=== PATIENT | female | born 1930 | race African-American/Black ===

== ENCOUNTER 2016-11-07 10:36 | Emergency (ER) | payer MEDICARE, OTHER ==
[~2016-11-07] VITALS: Ht 154.9 cm; Wt 118.0 kg
[~2016-11-07 10:36] MED LIST: ATOR20TA42 PO; CLOP75 PO; ECASA PO; ERGO50000 PO; FAMO20 PO; INDO50CA PO; METH5TAB4 PO; METO50TA PO; PRED20 PO; PROT40TA PO; SPIR50TA21 PO; TAB-TAB PO
[2016-11-07 10:37] VITALS: BP 142/76; PULSE 112; RESP 20; TEMP 98; O2SAT 97
[2016-11-07 10:54] VITALS: BP 132/72; PULSE 84; RESP 16; O2SAT 97
[2016-11-07] MEDS ORDERED: METO50TA PO (11:07)
[2016-11-07] MEDS ORDERED: PROT40TA PO (11:07)
[2016-11-07] MEDS ORDERED: BACL20TA PO (11:07)
[2016-11-07] MEDS ORDERED: ATOR20TA15 PO (11:07)
[2016-11-07] MEDS ORDERED: ALDA50TA2 PO (11:07)
[2016-11-07] MEDS ORDERED: ASPI325T PO (11:07)
--- NOTE | 2016-11-07 11:08 | PD ---
HPI Chief Complaint: Pain: Acute or Chronic Time Seen by Provider: 11:07 Travel History International Travel<30 days: No Contact w/Intl Traveler<30days: No Traveled to known affect area: No History of Present Illness HPI 86-year-old female presents to the emergency Department with complaint of general body aches since yesterday. Complaining of neck pain, left knee pain, back pain. Says she has history of arthritis and osteoporosis. Left knee pain is significant and she says her left knee has more swollen than her right. Reports decreased range of motion and strength secondary to pain. Denies injury. Denies chest pain, shortness of breath, abdominal pain, nausea, vomiting, diarrhea. Denies fever. Denies change in urine or stool. Denies nasal congestion, sore throat, cough, ear pain. Says the pain is "just my bones." States she wears depends but denies urinary symptoms. Has taken Aleve with no relief of symptoms. Allergies to tramadol and -prils. History of arthritis, osteoporosis, hypertension. That she doesn't have COPD but occasionally uses home oxygen. Primary care provider is Meghna Honeycutt. Symptoms are mild in severity. No other medical complaints. No other modifying factors or associated signs and symptoms. PFSH Past Medical History Arthritis: Yes Cancer: No Cardiovascular Problems: Yes (HTN) Cerebrovascular Accident: Yes (TIA IN 2014) Diabetes: No Diminished Hearing: No Endocrine: No Gastrointestinal Disorders: Yes (GASTRITIS) Gout: Yes Genitourinary: No Hypertension: Yes Immune Disorder: No Musculoskeletal: Yes Neurologic: No Respiratory: No Influenza Vaccination: Yes Menopausal: Yes Past Surgical History Gynecologic Surgery: Yes (HYSTERECTOMY) Hysterectomy: Yes Social History Alcohol Use: No Tobacco Use: No (stopped 06/2010-03/31 PPD X15 YR) Substance Use: No Allergies-Medications (Allergen,Severity, Reaction): Coded Allergies: benazepril (Unverified Allergy, Severe, Swelling, 11/09/16) captopril (Unverified Allergy, Severe, Swelling, 11/09/16) enalaprilat (Unverified Allergy, Severe, Swelling, 11/09/16) fosinopril (Unverified Allergy, Severe, Swelling, 11/09/16) lisinopril (Unverified Allergy, Severe, Swelling, 11/09/16) quinapril (Unverified Allergy, Severe, Swelling, 11/09/16) tramadol (Unverified Allergy, Intermediate, Hives, 11/09/16) Reported Meds & Prescriptions Reported Meds & Active Scripts Active Lortab (Hydrocodone-Acetaminophen) 5-325 Mg Tab 1 Tab PO Q6H PRN Macrobid (Nitrofurantoin Monoh/Nitrofur Macro) 100 Mg Cap 100 Mg PO BID 5 Days Reported Aldactone (Spironolactone) 50 Mg Tab 50 Mg PO DAILY Protonix (Pantoprazole Sodium) 40 Mg Tab 40 Mg PO DAILY Metoprolol Tartrate 50 Mg Tab 50 Mg PO BID Baclofen 20 Mg Tab 20 Mg PO DAILY Atorvastatin (Atorvastatin Calcium) 20 Mg Tab 20 Mg PO DAILY Aspirin 325 Mg Tab 325 Mg PO DAILY Review of Systems Except as stated in HPI: all other systems reviewed are Neg Physical Exam Narrative GENERAL: Well-nourished, well-developed elderly, -[place] female patient , in no acute distress; afebrile, nontoxic-appearing SKIN: Warm and dry. No rash. HEAD: Atraumatic. Normocephalic. EYES: Pupils equal and round. No scleral icterus. No injection or drainage. ENT: Mucosa pink and moist. No erythema or exudates. No uvular edema. No uvular , palatal, or tonsillar deviation. Airway patent. EARS: Bilateral pinnae and external canals appear within normal limits. Bilateral tympanic membranes without erythema, dullness or perforation. NECK: Moving freely. No midline tenderness on the patient of the cervical spine. Active rotation greater than 45 to the left and right. Trachea midline. No lymphadenopathy. CARDIOVASCULAR: Regular rate and rhythm. No murmur appreciated. RESPIRATORY: No accessory muscle use. Clear to auscultation. Breath sounds equal bilaterally. No retractions or tachypnea. GASTROINTESTINAL: Abdomen soft, non-tender, nondistended. Hepatic and splenic margins not palpable. Bowel sounds are active 4 quadrants. MUSCULOSKELETAL: Left knee with decreased range of motion; mild edema and without erythema or ecchymosis; tenderness on palpation to medial, lateral, patellar, and posterior aspect; no obvious deformity. No obvious deformities. No clubbing. No cyanosis. No edema. BACK: No CVA tenderness. NEUROLOGICAL: Awake and alert. Oriented 3. No obvious cranial nerve deficits. Motor grossly within normal limits. Normal speech. Moves all extremities. 5/5 strength to all extremities. PSYCHIATRIC: Appropriate mood and affect; insight and judgment normal. Data Data Last Documented VS Vital Signs Date Time Temp Pulse Resp B/P Pulse Ox O2 Delivery O2 Flow Rate FiO2 11/07/16 10:54 84 16 132/72 97 Room Air 11/07/16 10:37 98.0 Orders Basic Metabolic Panel (Bmp) (11/07/16 11:04) Complete Blood Count With Diff (11/07/16 11:04) Urinalysis - C+S If Indicated (11/07/16 11:04) Sodium Chloride 0.9% Flush (Ns Flush) (11/07/16 11:15) Chest, Single Ap (11/07/16 11:04) Ketorolac Inj (Toradol Inj) (11/07/16 11:15) Knee, Complete (4vws) (11/07/16 11:04) Influenzae A/B Antigen (11/07/16 11:12) Sodium Chlorid 0.9% 500 Ml Inj (Ns 500 M (11/07/16 13:15) Acetamin-Hydrocod 325-5 Mg ([place] 5-325 (11/07/16 13:45) Labs Laboratory Tests Test 11/07/16 11/07/16 11:35 12:15 White Blood Count 8.3 TH/MM3 Red Blood Count 4.19 MIL/MM3 Hemoglobin 11.6 GM/DL Hematocrit 36.2 % Mean Corpuscular Volume 86.5 FL Mean Corpuscular Hemoglobin 27.8 PG Mean Corpuscular Hemoglobin 32.1 % Concent Red Cell Distribution Width 15.6 % Platelet Count 209 TH/MM3 Mean Platelet Volume 7.6 FL Neutrophils (%) (Auto) 76.7 % Lymphocytes (%) (Auto) 13.1 % Monocytes (%) (Auto) 7.4 % Eosinophils (%) (Auto) 1.8 % Basophils (%) (Auto) 1.0 % Neutrophils # (Auto) 6.4 TH/MM3 Lymphocytes # (Auto) 1.1 TH/MM3 Monocytes # (Auto) 0.6 TH/MM3 Eosinophils # (Auto) 0.1 TH/MM3 Basophils # (Auto) 0.1 TH/MM3 CBC Comment DIFF FINAL Differential Comment Sodium Level 141 MEQ/L Potassium Level 4.2 MEQ/L Chloride Level 106 MEQ/L Carbon Dioxide Level 25.6 MEQ/L Anion Gap 9 MEQ/L Blood Urea Nitrogen 21 MG/DL Creatinine 1.44 MG/DL Estimat Glomerular Filtration 42 ML/MIN Rate Random Glucose 95 MG/DL Calcium Level 9.3 MG/DL Urine Color YELLOW Urine Turbidity HAZY Urine pH 5.5 Urine Specific [place] 1.023 Urine Protein TRACE mg/dL Urine Glucose (UA) NEG mg/dL Urine Ketones NEG mg/dL Urine Occult Blood MOD Urine Nitrite NEG Urine Bilirubin NEG Urine Urobilinogen LESS THAN 2.0 MG/DL Urine Leukocyte Esterase MOD Urine RBC 142 /hpf Urine WBC 6 /hpf Urine Squamous Epithelial 10 /hpf Cells Urine Transitional Epithelial <1 /hpf Cells Urine Bacteria RARE /hpf Urine Hyaline Casts 5 /lpf Urine Mucus FEW /lpf Microscopic Urinalysis Comment CULT NOT INDICATED MDM Medical Decision Making Medical Screen Exam Complete: Yes Emergency Medical Condition: Yes Medical Record Reviewed: Yes Differential Diagnosis Arthritis, left knee pain, influenza, generalized body aches, osteoporosis Narrative Course 86-year-old female with general body aches since yesterday. I spoke with Dr. Herndon, my attending physician, and he agrees with my plan of care. CBC, BMP , urinalysis, chest x-ray, left knee x-ray, Toradol, and influenza ordered. 1301: CBC unremarkable. BUN 21. Creatinine 1.44. Chest x-ray with no acute findings. Left knee x-ray concludes: Last 24 hours Impressions Knee X-Ray 11/07/16 1104 Signed Impressions: Service Date/Time: Monday, November 07, 2016 11:15 - CONCLUSION: 1. 3 compartment osteoarthritic change greatest in the medial compartment. 2. Large calcified joint body in the suprapatellar bursa. 3. Osteopenia. Hayder Ingram MD Chest X-Ray 11/07/16 1104 Signed Impressions: Service Date/Time: Monday, November 07, 2016 11:14 - CONCLUSION: No acute disease. Hayder Ingram MD Analysis essentially infection. Macrobid prescribed. Dr. Herndon prescribed Lortab for pain. Patient has a walker for support. Instructed patient to follow up with orthopedics. Instructed patient to follow up with primary care provider. Patient verbalizes understanding and agreement with treatment plan. Patient is medically cleared and stable for discharge. Discussed reasons to return to the emergency department. Patient agrees with treatment plan. The patients vital signs are stable and the patient is stable for outpatient follow- up and treatment. Patient discharged home, stable and in no acute distress. Diagnosis Primary Impression: Left knee pain Qualified Code: M25.562 - Left knee pain, unspecified chronicity Additional Impressions: Generalized pain Cystitis Referrals: Primary Care Physician Patient Instructions: General Instructions, Knee Pain (ED), Urinary Tract Infection in Women (ED) Additional Instructions: Tylenol instructed and as needed for pain and inflammation Walker for support Follow-up with primary care provider Return to emergency department immediately for worsening symptoms Med/Other Pt SpecificInfo: Prescription(s) given Scripts Hydrocodone-Acetaminophen (Lortab)5-325 Mg Tab1 Tab PO Q6H PRN (PAIN) #10 TAB Ref 0 Prov:Atul Herndon MD 11/07/16 Nitrofurantoin Monohydrate Macrocrystals (Macrobid)100 Mg [id number] Mg PO BID 5 Days Ref 0 Prov:Evon Coffey 11/07/16 Disposition: 01 DISCHARGE HOME Condition: Stable Evon Coffey Nov 07, 2016 11:08
[2016-11-07] MEDS ORDERED: SODIUM CHLORIDE 0.9% FLUSH 10 ML FLUSH IV FLUSH PRN (11:15)
[2016-11-07] MEDS ORDERED: KETOROLAC TROMETHAMINE 30 MG/ML (IVP) VIAL IV PUSH ONE (11:15)
--- NOTE | 2016-11-07 11:36 | RADRPT ---
EXAM DATE/TIME: 11/07/2016 11:14 [facility] COMPARISON: CHEST PA & LAT, June 24, 2014, 11:47. CHEST SINGLE AP, March 30, 2014, 18:23. INDICATIONS : Short of breath. MEDICAL HISTORY : Gout. SURGICAL HISTORY : None. ENCOUNTER: Initial ACUITY: 2 days PAIN SCORE: 0/10 LOCATION: Bilateral chest FINDINGS: A single view of the chest demonstrates the lungs to be symmetrically aerated without evidence of mas s, infiltrate or effusion. The cardiomediastinal contours are unremarkable. Osseous structures are intact. A retrocardiac hiatal hernia is again noted. There are mild atherosclerotic changes in the ao rta. Degenerative changes are noted in the left glenohumeral joint and there is evidence of chronic r otator cuff degeneration on the right. CONCLUSION: No acute disease. Hayder Ingram MD on November 07, 2016 at 11:34 Board Certified Radiologist. This report was verified electronically.
--- NOTE | 2016-11-07 11:38 | RADRPT ---
EXAM DATE/TIME: 11/07/2016 11:15 [facility] COMPARISON: No previous studies available for comparison. INDICATIONS : Left knee pain. No known injury. MEDICAL HISTORY : Gout. SURGICAL HISTORY : None. ENCOUNTER: Initial ACUITY: 2 days PAIN SCORE: 10/10 LOCATION: Left knee. FINDINGS: A standard 4 view examination of the left knee was obtained and demonstrates joint space narrowing, s clerosis and spurring in the medial compartment. Milder degenerative changes are noted in the patello femoral joint with sclerosis and spurring. There is chondrocalcinosis in the lateral compartment. The re is a large partially calcified joint body suprapatellar bursa measuring up to 0.6 x 2.2 cm. There is no acute fracture or malalignment. Vascular calcifications are present and there is diffuse osteop enia. CONCLUSION: 1. 3 compartment osteoarthritic change greatest in the medial compartment. 2. Large calcified joint body in the suprapatellar bursa. 3. Osteopenia. Hayder Ingram MD on November 07, 2016 at 11:35 Board Certified Radiologist. This report was verified electronically.
[2016-11-07 11:50] LABS: AUTOMATED NEUTROPHIL # 6.4 TH/MM3 (1.8-7.7); BASOPHIL # 0.1 TH/MM3 (0-0.2); EOSINOPHIL # 0.1 TH/MM3 (0-0.4); EOSINOPHIL % 1.8 % (0.0-4.0); HEMATOCRIT 36.2 % (35.0-46.0); HEMO FLAGS DIFF FINAL; LYMPH % 13.1 % (9.0-44.0); LYMPHOCYTE # 1.1 TH/MM3 (1.0-4.8); MEAN CELL VOLUME 86.5 FL (80.0-100.0); MEAN CORPUSCULAR HEMOGLOBIN 27.8 PG (27.0-34.0); MEAN CORPUSCULAR HGB CONC 32.1 % (32.0-36.0); MONO % 7.4 % (0.0-8.0); NEUT % 76.7 % (16.0-70.0); PLATELET COUNT 209 TH/MM3 (150-450); RED BLOOD COUNT 4.19 MIL/MM3 (4.00-5.30); RED CELL DISTRIBUTION WIDTH 15.6 % (11.6-17.2); WHITE BLOOD COUNT 8.3 TH/MM3 (4.0-11.0)
[2016-11-07 12:05] LABS: BICARBONATE 25.6 MEQ/L (21.0-32.0); POTASSIUM 4.2 MEQ/L (3.5-5.1)
[2016-11-07 12:50] LABS: BACTERIA, URINE RARE /hpf; BLOOD, URINE MOD (NEG); GLUCOSE,URINE NEG (NEG); HYALINE CAST, URINE 5 /lpf (RARE); KETONE, URINE NEG (NEG); MUCUS URINE FEW /lpf (OCC); NITRITE,URINE NEG (NEG); PH, URINE 5.5 (5.0-8.5); SQUAMOUS EPITHELIAL CELL URINE 10 /hpf (0-5); TRANSITIONAL EPI CELLS, URINE <1 /hpf; URINE COLOR YELLOW (YELLW/STRAW)
[2016-11-07 12:51] LABS: COMMENT (UR) CULT NOT INDICATED; CULTURE IF INDICATED CULT NOT INDICATED
[2016-11-07] MEDS ORDERED: SODIUM CHLORID 0.9% 500 ML INJ 500 ML IV ONE (13:15)
[2016-11-07] MEDS ORDERED: MACR100C2 PO (13:26)
[2016-11-07] MEDS ORDERED: HYDR-3533 PO (13:30)
[2016-11-07] MEDS ORDERED: ACETAMINOPHEN/HYDROcodone 325 MG/5 MG TAB PO ONE (13:45)
== END 2016-11-07 14:22 | disposition home or self-care (01) ==
LOC: NEPD 10:36
DX: M25.562 Pain in left knee (principal); N30.90 Cystitis, unspecified without hematuria; M54.2 Cervicalgia; I10 Essential (primary) hypertension; Z87.891 Personal history of nicotine dependence
CPT/HCPCS: 71010; 73564; 80048; 81001; 85025; 87804; 96361; 96374; 99284; J1885; J7040

== ENCOUNTER 2017-09-07 13:39 | Emergency (ER) | payer OTHER ==
[~2017-09-07] VITALS: Ht 154.9 cm; Wt 90.0 kg
[~2017-09-07 13:39] MED LIST changes: +ALDA50TA2 PO; +ASPI-183 PO; +ATOR20TA15 PO; -ATOR20TA42 PO; +BACL20TA PO; -CLOP75 PO; -ECASA PO; -ERGO50000 PO; -FAMO20 PO; +HYDR-3533 PO; -INDO50CA PO; +MACR100C2 PO; -METH5TAB4 PO; -PRED20 PO; -SPIR50TA21 PO; -TAB-TAB PO
[2017-09-07 13:45] VITALS: BP 143/65; PULSE 77; RESP 16; TEMP 98.1; O2SAT 96
[2017-09-07] MEDS ORDERED: ROBA500T PO (14:21)
--- NOTE | 2017-09-07 14:21 | PD ---
HPI Chief Complaint: Back/ Neck Pain or Injury Time Seen by Provider: 13:55 Travel History International Travel<30 days: No Contact w/Intl Traveler<30days: No Traveled to known affect area: No History of Present Illness HPI 87-year-old female presents to emergency department with complaint of right- sided low back pain that radiates down her right leg that she has been dealing with for many years. She says over the past 1 month her pain has worsened. Denies new or recent injury. She has followed up with her primary care provider and has had x-rays of her lumbar spine, hip, and has been referred to pain management. She has an appointment with pain management on September 16. Denies encopresis, incontinence, saddle anesthesias. Denies cancer. Denies fever, vomiting, abdominal pain, dysuria, change in stool. Has been taking Tylenol for pain with some relief. Rates pain 10/10 in the mornings when she first wakes up. Her pain subsided throughout the day with movement. Pain is worse in the mornings. Better throughout the day. Primary care provider is [employer]. Allergies as listed on the chart. 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 Has no other medical complaints. No other modifying factors or associated signs and symptoms. PFSH Past Medical History Arthritis: Yes Cancer: No Cardiovascular Problems: Yes (HTN) Cerebrovascular Accident: Yes (TIA IN 2014) Diabetes: No Diminished Hearing: No Endocrine: No Gastrointestinal Disorders: Yes (GASTRITIS) Gout: Yes Genitourinary: No Hypertension: Yes Immune Disorder: No Musculoskeletal: Yes Neurologic: No Respiratory: No ?: Not Menopausal: Yes Past Surgical History Gynecologic Surgery: Yes (HYSTERECTOMY) Hysterectomy: Yes Social History Alcohol Use: No Tobacco Use: No (stopped 06/2010-03/31 PPD X15 YR) Substance Use: No Allergies-Medications (Allergen,Severity, Reaction): Coded Allergies: benazepril (Unverified Allergy, Severe, Swelling, 09/07/17) captopril (Unverified Allergy, Severe, Swelling, 09/07/17) enalaprilat (Unverified Allergy, Severe, Swelling, 09/07/17) fosinopril (Unverified Allergy, Severe, Swelling, 09/07/17) lisinopril (Unverified Allergy, Severe, Swelling, 09/07/17) quinapril (Unverified Allergy, Severe, Swelling, 09/07/17) tramadol (Unverified Allergy, Intermediate, Hives, 09/07/17) acetaminophen (Verified Allergy, Unknown, 09/07/17) oxycodone (Verified Allergy, Unknown, 09/07/17) Reported Meds & Prescriptions Reported Meds & Active Scripts Active Robaxin (Methocarbamol) 500 Mg Tab 500 Mg PO QID PRN Macrobid (Nitrofurantoin Monoh/Nitrofur Macro) 100 Mg Cap 100 Mg PO BID 5 Days Reported Aldactone (Spironolactone) 50 Mg Tab 50 Mg PO DAILY Protonix (Pantoprazole Sodium) 40 Mg Tab 40 Mg PO DAILY Metoprolol Tartrate 50 Mg Tab 50 Mg PO BID Baclofen 20 Mg Tab 20 Mg PO DAILY Atorvastatin (Atorvastatin Calcium) 20 Mg Tab 20 Mg PO DAILY Aspirin 325 Mg Tab 325 Mg PO DAILY Review of Systems Except as stated in HPI: all other systems reviewed are Neg Physical Exam Narrative GENERAL: Well-nourished, well-developed elderly, black female patient, in no acute distress; afebrile, nontoxic-appearing SKIN: Warm and dry. HEAD: Atraumatic. Normocephalic. EYES: Pupils equal and round. No scleral icterus. No injection or drainage. ENT: Mucosa pink and moist. Airway patent. NECK: Trachea midline. CARDIOVASCULAR: Regular rate. RESPIRATORY: No accessory muscle use. GASTROINTESTINAL: Abdomen soft, non-tender, nondistended. Positive bowel sounds. No hepato-splenomegaly, or palpable masses. No guarding. MUSCULOSKELETAL: Bilateral lower extremities supple and non-tense with 2+ pedal pulses and sensory intact; with full range of motion and 5/5 strength. 2 + DTRs bilaterally. Active dorsiflexion and extension of bilateral feet. By straight leg raise is negative for low back pain. Ambulatory in room with normal gait and with assistance with her cane. Sitting up in bed at 90. No obvious deformities. No clubbing. No cyanosis. No edema. BACK: No midline point tenderness on palpation of the lumbar spine. Tenderness on palpation of right lumbar iliosacral area. No obvious deformities. NEUROLOGICAL: Awake and alert. Oriented 3. No obvious cranial nerve deficits. Motor grossly within normal limits. Normal speech. Moves all extremities. 5/5 strength to all extremities. Sensory intact. PSYCHIATRIC: Appropriate mood and affect; insight and judgment normal. Data Data Last Documented VS Vital Signs Date Time Temp Pulse Resp B/P (MAP) Pulse Ox O2 Delivery O2 Flow Rate FiO2 09/07/17 13:45 98.1 77 16 143/65 (91) 96 Orders Orders Orphenadrine Inj (Norflex Inj) (09/07/17 14:30) Ed Discharge Order (09/07/17 14:17) MDM Medical Decision Making Medical Screen Exam Complete: Yes Emergency Medical Condition: Yes Medical Record Reviewed: Yes Differential Diagnosis Chronic low back pain, acute exacerbation of chronic low back pain, sciatica Narrative Course 87-year-old female with right-sided low back pain with sciatica. She states she has had imaging of her lumbar spine and right hip from her primary care provider. She has been referred to pain management and has a appointment on September 16. She was hoping she could get some pain relief by coming into the ER. She has no midline tenderness on palpation of the lumbar spine. No current cancer. Denies fever, vomiting. She is ambulatory in the room with a normal gait with assistance with her cane. Her neuro exam is unremarkable. Denies encopresis, incontinence, saddle anesthesias. Norflex administered in the ER. Robaxin prescribed for home. Instructed patient to follow-up with scheduled pain management appointment. Instructed patient to follow up with primary care provider. Patient verbalizes understanding and agreement with treatment plan. Patient is medically cleared and stable for discharge. Discussed reasons to return to the emergency department. Patient agrees with treatment plan. The patients vital signs are stable and the patient is stable for outpatient follow- up and treatment. Patient discharged home, stable and in no acute distress. Diagnosis Primary Impression: Right-sided low back pain with sciatica Qualified Codes: M54.41 - Lumbago with sciatica, right side Referrals: Neurologist Pain Management Primary Care Physician Patient Instructions: Acute Low Back Pain (ED), General Instructions, Sciatica (ED) Additional Instructions: Tylenol or ibuprofen as directed and as needed for pain Robaxin as prescribed and as needed for muscle spasms Heating pad and/or ice to affected area to reduce pain Avoid aggravating activities; increase activity as tolerated Follow-up with primary care provider Follow-up with neurologist Follow-up with pain management Return to emergency department immediately with worsening of symptoms Med/Other Pt SpecificInfo: Prescription(s) given Scripts Methocarbamol (Robaxin) 500 Mg Tab 500 MG PO QID Y for MUSCLE SPASM, #20 TAB 0 Refills Prov: Evon Coffey 09/07/17 Disposition: 01 DISCHARGE HOME Condition: Stable Evon Coffey Sep 07, 2017 14:21
[2017-09-07] MEDS ORDERED: ORPHENADRINE INJ 60 MG/2 ML AMP IM ONE (14:30)
== END 2017-09-07 14:34 | disposition home or self-care (01) ==
LOC: NEPK 13:39
DX: M54.41 Lumbago with sciatica, right side (principal); I10 Essential (primary) hypertension
CPT/HCPCS: 96372; 99283; J2360

== ENCOUNTER 2018-01-08 11:57 | Inpatient (IN) ==
[2018-01-08] MEDS ORDERED: Sod Chloride 0.9% Inj 1,000 ML IV.CONT SCH (12:30)
--- NOTE | 2018-01-08 12:52 | CT ---
EXAM DATE: 01/08/2018 12:25 PM EDT AGE/SEX: 87 years / Female INDICATIONS: Altered mental status, Right hand numbness 1 hour CLINICAL DATA: This is the patient's initial encounter. Patient reports that signs and symptoms have been present for 1 day and indicates a pain score of 0/10. MEDICAL/SURGICAL HISTORY: Transient ischemic attack. Hypertension. None. RADIATION DOSE: 56.38 CTDI (mGy) COMPARISON: No prior exams available for comparison. TECHNIQUE: CT of the head without contrast. Using automated exposure control and adjustment of the mA and/or kV according to patient size, radiation dose was kept as low as reasonably achievable to ob tain optimal diagnostic quality images. DICOM format image data is available electronically for revi ew and comparison. FINDINGS: Cerebrum: The ventricles are normal in size. There is bilateral periventricular white matter hypoint ensity. There is a more focal lenticular shaped area of hypointensity involving the left caudate with mild mass effect upon the left frontal horn of the lateral ventricle.. This may represent a subacute infarction. The sulci are normal without evidence of effacement. No evidence of extra-axial fluid co llection. No evidence of midline shift. Posterior Fossa: The cerebellum and brainstem are intact. The 4th ventricle is midline. The cerebe llopontine angle is unremarkable. Extracranial: The visualized portion of the orbits is intact. Skull: The calvaria is intact. No evidence of skull fracture. CONCLUSION: 1. Lenticular-shaped hypointense area involving the left caudate head with mild mass effect upon the left frontal horn of the lateral ventricle. This may represent a subacute infarct. Consider further evaluation with MRI. . Electronically signed by: Demetria Mejia MD 01/08/2018 12:50 PM EDT
[2018-01-08 12:53] LABS: Prothrombin Time 10.3 sec (9.8-11.6)
--- NOTE | 2018-01-08 12:55 | ED ---
HPI General Chief Complaint: Neuro Symptoms/Deficit Stated Complaint: neuro Time Seen by Provider: 01/08/18 12:16 Source: family History of Present Illness HPI Narrative: 87 yo female with a history of TIA in 2015 presents with several hours of R hand numbness and pain. History is provided mostly by patient's friend and sister as patient with baseline communication difficulties. Symptoms began while patient was singing in [employer] choir this AM. Had difficulty holding on to objects during episode. Symptoms resolved by time of presentation to ED, no residual tingling, numbess, weakness, or pain. No slurring of speech, facial droop, LOC. According to the history was at the bedside, patient has baseline mental status changes. According to her they are not new. Related Data Home Medications Medication Instructions Recorded Confirmed Unable to Obtain Home Meds 01/08/18 01/08/18 Allergies Allergy/AdvReac Type Severity Reaction Status Date / Time benazepril Allergy Severe Swelling Unverified 09/07/17 14:09 captopril Allergy Severe Swelling Unverified 09/07/17 14:09 enalaprilat Allergy Severe Swelling Unverified 09/07/17 14:09 fosinopril Allergy Severe Swelling Unverified 09/07/17 14:09 lisinopril Allergy Severe Swelling Unverified 09/07/17 14:09 quinapril Allergy Severe Swelling Unverified 09/07/17 14:09 tramadol Allergy Intermediate Hives Unverified 09/07/17 14:09 acetaminophen Allergy Unknown Verified 09/07/17 14:22 oxycodone Allergy Unknown Verified 09/07/17 14:22 [facility] Medical History Medical History Hypertension (Acute) TIA (transient ischemic attack) (Acute) Surgical History Surgical History History of hysterectomy (Acute) Family History Family History Mother Stroke Social History Social History Substance History: No History of Abuse Second Hand Smoke Exposure: No Smoking Status: Never smoker How Often Do You Have a Drink Containing Alcohol: Never Recent Travel in [place] within the Last 8 Weeks: No Recent Out of Country Travel within the Last 8 Weeks: No Immunization History Tetanus Immunization: <5 Years Exam Const General: cooperative, no acute distress and well developed Orientation: alert, awake and confused [facility] Head: normocephalic and atraumatic Nose: no nasal discharge and no epistaxis Mouth: moist mucous membranes Eyes Sclera: normal sclerae Pupils: PERRL Neck Neck: trachea midline and no JVD Resp Effort & Inspection: no use of accessory muscles Auscultation: clear to auscultation bilaterally Cardio Rate: regular rate Rhythm: regular rhythm Heart Sounds: no murmurs GI Inspection: non-distended Palpation: soft, no hepatosplenomegaly and nontender Skin General: dry skin (warm) Neuro General: alert and awake Cranial Nerves: other Speech: speech normal Motor: no movement abnormalities noted Extrem General: normal to inspection, no clubbing, no cyanosis and no edema Psych Mood: congruent mood Affect: normal affect Thought Process: other (initially answers appropriately but unable to complete sentences, appears to have difficulty with word finding and completing thoughts) Judgment: fair Course Initial Documented Vital Signs Temperature 98.1 F 01/08/18 12:07 Pulse Rate 75 01/08/18 12:07 Respiratory Rate 16 01/08/18 12:07 Blood Pressure 188/97 H 01/08/18 12:07 Pulse Oximetry 97 01/08/18 12:07 Last Documented Vital Signs Temperature 98.1 F 01/08/18 12:07 Pulse Rate 76 01/08/18 15:24 Respiratory Rate 16 01/08/18 12:07 Blood Pressure 182/76 H 01/08/18 15:24 Pulse Oximetry 96 01/08/18 15:24 Medical Decision Making [facility] Narrative Medical decision making narrative: 87 yo female with a prior TIA who presents with R hand numbness now resolved. Patient was in no acute distress on arrival, alert but confused apparently per baseline. Patient found to be hypertensive, neuro exam wnl apart from word finding difficulty and confusion. History supplemented by family member at bedside. Peripheral IV established and TIA workup initiated including CBC, BMP, and head CT. CT head with finding suspicious for subacute infarct in L head of caudate with MRI recommended to further evaluate. MRI head ordered. Medical Screen Exam Complete: Yes Emergency Medical Condition: Yes Lab Data Result diagrams: 01/08/18 12:26 01/08/18 12:26 Lab Results 01/08/18 01/08/18 01/08/18 Range/Units 12:26 12:26 12:33 WBC 7.3 (4.0-11.0) th/mm3 RBC 4.20 (4.00-5.30) mil/mm3 Hgb 12.1 (11.6-15.3) gm/dL Hct 36.0 (35.0-46.0) % MCV 85.7 (80.0-100.0) fL MCH 28.7 (27.0-34.0) pg MCHC 33.5 (32.0-36.0) % RDW 17.0 (11.6-17.2) % Plt Count 187 (150-450) th/mm3 MPV 8.5 (7.0-11.0) fL Prelim Diff (Auto) Slide review pending Neut % (Auto) 67.0 (16.0-70.0) % Lymph % (Auto) 21.2 (9.0-44.0) % [place] % (Auto) 7.8 (0.0-8.0) % Eos % (Auto) 3.4 (0.0-4.0) % Baso % (Auto) 0.6 (0.0-2.0) % Neut # (Auto) 4.9 (1.8-7.7) th/mm3 Lymph # (Auto) 1.5 (1.0-4.8) th/mm3 [place] # (Auto) 0.6 (0.0-0.9) th/mm3 Eos # (Auto) 0.2 (0.0-0.4) th/mm3 Baso # (Auto) 0.0 (0.0-0.2) th/mm3 WBC Differential . Diff Scan Auto diff confirmed Differential Comment . PT 10.3 (9.8-11.6) sec INR 1.0 Ratio APTT 24.0 L (24.3-30.1) sec POC Glucose 98 (68-110) mg/dl Imaging Data Radiologist's impression: Head MRI 01/08/18 00:00 CONCLUSION: 1. Moderate periventricular white matter changes 2. There is no restricted diffusion suggest an acute ischemic event at this point. 3. There is no parenchymal hemorrhage. Head MRA 01/08/18 00:00 CONCLUSION: 1. Negative for major branch vessel occlusion 2. Suboptimal visualization of the M2 vessels on the right that may well be artifactual. Head CT 01/08/18 12:16 CONCLUSION: 1. Lenticular-shaped hypointense area involving the left caudate head with mild mass effect upon the left frontal horn of the lateral ventricle. This may represent a subacute infarct. Consider further evaluation with MRI. . Discharge Plan Discharge Disposition Patient Disposition: 30 Still Patient Discharge Details Diagnosis: Ischemic stroke Physicians Team ED Provider: Kameron Calles Primary Care Provider: UNKNOWN, Other Providers: Rosana Ahumada Rxs /Orders / Referrals /Forms Prescriptions: No Action Unable to Obtain Home Meds RF: 0 Status ED Status: With Doctor
[2018-01-08 12:56] LABS: Baso % (Auto) 0.6 % (0.0-2.0); Eos # (Auto) 0.2 th/mm3 (0.0-0.4); Eos % (Auto) 3.4 % (0.0-4.0); Hemoglobin 12.1 gm/dL (11.6-15.3); Lymph # (Auto) 1.5 th/mm3 (1.0-4.8); Lymph % (Auto) 21.2 % (9.0-44.0); Mean Corpuscular HGB Conc 33.5 % (32.0-36.0); Mean Corpuscular Hemoglobin 28.7 pg (27.0-34.0); Mean Corpuscular Volume 85.7 fL (80.0-100.0); Mean Platelet Volume 8.5 fL (7.0-11.0); Mono # (Auto) 0.6 th/mm3 (0.0-0.9); Mono % (Auto) 7.8 % (0.0-8.0); Neut # (Auto) 4.9 th/mm3 (1.8-7.7); Platelet Count 187 th/mm3 (150-450); White Blood Count 7.3 th/mm3 (4.0-11.0)
[2018-01-08] MEDS ORDERED: Dextrose 50% in Water 50 ML Vial IV.PUSH PRN (13:50)
[2018-01-08] MEDS ORDERED: Insulin NovoLOG Aspart Correctional Sugar Inj SQ PRN (13:50)
[2018-01-08] MEDS ORDERED: Sodium Chloride 0.9% 2 ML Flush PRN IV.FLUSH (14:00)
--- NOTE | 2018-01-08 14:09 | P.HPIM ---
History of Present Illness Primary Care Physician: UNKNOWN History of Present Illness: 87 year old right-handed female with history of HTN and prior TIA in 2015 presenting with right-hand weakness. The patient is a poor historian and seems to have some dysarthric and slurred speech. She is oriented x 3 but is unable to tell me exactly what happened today. Her daugther and sister are present at the bedside. The sister reports they were at [employer] today and when the patient was writing something down she states she was very clumsy and unable to write. She stated her hand was very tingly and felt numb. Presently she states her hand is feeling back to normal. Her sister, in private , informs me that for the past couple weeks the patient has seemed "off." She states she doesn't seem to be comprehending what is being told to her a lot and her speech seems different. The patient's sister also confirms this and states the patient has been repeating herself a lot. She denies any gait abnormalities , blurry or double vision, dizziness, or confusion. She denies chest pain, palpitations, lightheadedness, or dizziness. She states she takes medicine for HTN but cannot tell me what and cannot recall other medications she takes or medical problems she has. She reports she takes the "full strength" aspirin but did not take it today. She denies taking blood thinners. Her daughter states she is going to go to the patient's house and bring her medications in because no one can tell me what she is on and the last time we have a med rec was from 2015. PMH: HTN, prior TIA Surgical hx: hysterectomy Family hx: mother from a stroke, does not know father's history Social hx: lives with sister, quit smoking 5 years ago (started smoking "later in life" but is very vague on how much and for how long), denies EtOH or drug use Inpatient Certification I certify that the inpatient services were ordered in accordance with Medicare regulations governing the order. This includes certification that hospital inpatient services are reasonable and necessary and in the case of services not specified as inpatient-only under 42 CFR 419.22(n), that they are appropriately provided as inpatient services in accordance to with the 2-midnight benchmark under 43 CFR 412.3(e). Estimated length of stay: 2 dayd Plan after D/C: to be determined based on PT/OT assessment - Diagnosis (1) Ischemic stroke Review of Systems All other systems reviewed negative except as stated in HPI PMFSH - History History Provided By: Patient, Friend - Medical History Medical History: Medical History (Last Reviewed 01/08/18 @ 14:31 by Sultana Warner MD) Hypertension TIA (transient ischemic attack) - Surgical History Surgical History: Surgical History (Last Updated 01/08/18 @ 14:32 by Sultana Warner MD) History of hysterectomy - Family History Family History: Family History (Last Updated 01/08/18 @ 14:32 by Sultana Warner MD) Mother Stroke - Social History I have reviewed the patient's Social History: Yes - Tobacco History Second Hand Smoke Exposure: No Smoking Status: Never smoker - Alcohol History How Often Do You Have a Drink Containing Alcohol: Never - Substance Use History Substance History: No History of Abuse - Travel History Recent Travel in the [place] Within the Last 8 Weeks: No Recent Travel Out of the Country Within the Last 8 Weeks: No - Immunization History Tetanus Immunization: <5 Years Medications and Allergies Active Medications: Active Medications Atorvastatin Calcium (Lipitor) 10 mg PO HS JOSIAH Dextrose (D50w Vial) 50 ml IV.PUSH UNSCH PRN PRN Reason: per Hypoglycemic Protocol Glucagon (Glucagon Inj) 1 mg OTHER UNSCH PRN PRN Reason: per Hypoglycemic Protocol Sodium Chloride (Ns Inj) 1,000 mls @ 70 mls/hr IV.CONT .[id number] JOISAH Insulin Aspart (Novolog Insulin Correctional Sugar Inj) 0 unit SQ ACHS PRN; Protocol PRN Reason: Per Protocol Sodium Chloride (Ns Flush) 2 ml IV.FLUSH BID JOSIAH Sodium Chloride (Ns Flush) 2 ml IV.FLUSH PRN PRN PRN Reason: FLUSH AFTER USING IV ACCESS Allergies Allergy/AdvReac Type Severity Reaction Status Date / Time benazepril Allergy Severe Swelling Unverified 09/07/17 14:09 captopril Allergy Severe Swelling Unverified 09/07/17 14:09 enalaprilat Allergy Severe Swelling Unverified 09/07/17 14:09 fosinopril Allergy Severe Swelling Unverified 09/07/17 14:09 lisinopril Allergy Severe Swelling Unverified 09/07/17 14:09 quinapril Allergy Severe Swelling Unverified 09/07/17 14:09 tramadol Allergy Intermediate Hives Unverified 09/07/17 14:09 acetaminophen Allergy Unknown Verified 09/07/17 14:22 oxycodone Allergy Unknown Verified 09/07/17 14:22 Home Medications Medication Instructions Recorded Confirmed Type Unable to Obtain Home Meds 01/08/18 01/08/18 History Exam Vital signs: Vital Signs 01/08/18 12:07 Temperature 98.1 F Pulse Rate 75 Respiratory Rate 16 Blood Pressure 188/97 H Pulse Oximetry 97 Intake & Output 01/07/18 01/08/18 01/08/18 18:59 06:59 18:59 Weight 77.111 kg Narrative: GENERAL: WN, WD female sitting up in bed in NAD. SKIN: Warm and dry. HEENT: AT/NC. PERRLA. EOMI. Arcus senilis bilaterally. MMM. NECK: Supple no tender LAD or JVD. HEART: RRR no m/r/g. LUNGS: CTAB without wheezes or crackles. ABDOMEN: +BS, soft, NT, ND. EXTREMITIES: No LE edema. 1+ pedal pulses. NEURO: Awake, alert, and oriented to person, time, place, president. CN II-XII intact. Biceps and trapezius strength 5/5 bilaterally. R pressurization mechanic strength slightly decreased compared to left but otherwise 5/5. LE strength 5/5 bilaterally. Sensation intact bilaterally and symmetrically. R pronator drift. Speech slightly dysarthric. PSYCH: Appropriate mood and affect. Results - Labs CBC & Chem 7: 01/08/18 12:26 01/08/18 12:26 Labs: Short CBC 01/08/18 Range/Units 12:26 WBC 7.3 (4.0-11.0) th/mm3 Hgb 12.1 (11.6-15.3) gm/dL Hct 36.0 (35.0-46.0) % Plt Count 187 (150-450) th/mm3 - Imaging Impressions Head CT 01/08/18 12:16 CONCLUSION: 1. Lenticular-shaped hypointense area involving the left caudate head with mild mass effect upon the left frontal horn of the lateral ventricle. This may represent a subacute infarct. Consider further evaluation with MRI. . Caprini VTE Risk Assessment Caprini VTE Risk Assessment: Moderate/High Risk (score >= 2) Caprini Risk Assessment Model: Point Value = 1 Point Value = 2 Point Value = 3 Point Value = 5 Age 41-60 Minor surgery BMI > 25 kg/m2 Swollen legs Varicose veins or History of unexplained or recurrent spontaneous Oral contraceptives or hormone replacement Sepsis (< 1 month) Serious lung disease, including pneumonia (< 1 month) Abnormal pulmonary function Acute myocardial infarction Congestive heart failure (< 1 month) History of inflammatory bowel disease Medical patient at bed rest Age 61-74 Arthroscopic surgery Major open surgery (> 45 min) Laparoscopic surgery (> 45 min) Malignancy Confined to bed (> 72 hours) Immobilizing plaster cast Central venous access Age >= 75 History of VTE Family history of VTE Factor V Leiden Prothrombin [id number] Lupus anticoagulant Anticardiolipin antibodies Elevated serum homocysteine Heparin-induced thrombocytopenia Other congenital or acquired thrombophilia Stroke (< 1 month) Elective arthroplasty Hip, pelvis, or leg fracture Acute spinal cord injury (< 1 month) Prophylaxis Regimen: Total Risk Factor Score Risk Level Prophylaxis Regimen 0-1 Low Early ambulation 2 Moderate Order ONE of the following: *Sequential Compression Device (SCD) *Heparin 5000 units SQ BID 3-4 Higher Order ONE of the following medications: *Heparin 5000 units SQ TID *Enoxaparin/Lovenox 40 mg SQ daily (WT < 150 kg, CrCl > 30 mL/min) *Enoxaparin/Lovenox 30 mg SQ daily (WT < 150 kg, CrCl > 10-29 mL/min) *Enoxaparin/Lovenox 30 mg SQ BID (WT < 150 kg, CrCl > 30 mL/min) AND/OR *Sequential Compression Device (SCD) 5 or more Highest Order ONE of the following medications: *Heparin 5000 units SQ TID (Preferred with Epidurals) *Enoxaparin/Lovenox 40 mg SQ daily (WT < 150 kg, CrCl > 30 mL/min) *Enoxaparin/Lovenox 30 mg SQ daily (WT < 150 kg, CrCl > 10-29 mL/min) *Enoxaparin/Lovenox 30 mg SQ BID (WT < 150 kg, CrCl > 30 mL/min) AND *Sequential Compression Device (SCD) Assessment and Plan - Assessment (1) Ischemic stroke Code(s): I63.9 - Cerebral infarction, unspecified Status: Acute - Plan 87 year old female with HTN and prior TIA presenting with transient right hand weakness and numbness. CT showing possible subacute infarct around the left caudate. She will be admitted for ischemic stroke. 1. Ischemic stroke - Though patient presenting with transient right-hand weakness/numbness she does have some dysarthric speech and somewhat altered mental status per family for the past couple weeks - CT head showing lenticular shaped hypointense area involving the left caudate head with mild mass-effect upon the left frontal horn of the lateral ventricle possibly representing a subacute infarct - She could have had a TIA on top of a recent stroke - Obtain MRI/MRA brain, carotid U/S, and 2D echo - Monitor on telemetry - ACS r/o - Resume Aspirin 325 mg daily, give one dose now - Per review of EMR, in 2014 patient was prescribed Plavix after she had a TIA. Unsure if she is still taking this but her daughter went to get her medications - Neuro consulted for further eval - PT/OT/ST - NS at 70 ml/hr 2. HTN - BP elevated on arrival at 188/97 - Allow for permissive HTN at this time - Labetalol PRN if SBP >220 - Resume home meds likely tomorrow and once they are verified Other chronic medical problems to be determined based on patient's medications once they are verified. DVT prophylaxis: Heparin Q12 Code Status: DNR Discussed Condition With: Patient and family
[2018-01-08] MEDS ORDERED: Labetalol HCl Inj 100 MG/20 ML Vial IV.PUSH PRN (14:42)
--- NOTE | 2018-01-08 15:14 | MR ---
EXAM DATE: 01/08/2018 2:10 PM EDT AGE/SEX: 87 years / Female INDICATIONS: . Right hand numbness. CLINICAL DATA: This is the patient's initial encounter. Patient reports that signs and symptoms have been present for 1 day and indicates a pain score of 0/10. MEDICAL/SURGICAL HISTORY: Hypertension. Hysterectomy. [place] [facility] [place]. . TECHNIQUE: 3D [id number] MRA was performed. Source images, multiplanar STS MIP, and 3D volum e MIP reconstructions were reviewed. 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 Basilar artery patent. CONCLUSION: 1. Negative for major branch vessel occlusion 2. Suboptimal visualization of the M2 vessels on the right that may well be artifactual. Electronically signed by: Perfecto Hairston MD 01/08/2018 3:13 PM EDT
--- NOTE | 2018-01-08 15:15 | MR ---
EXAM DATE: 01/08/2018 2:10 PM EDT AGE/SEX: 87 years / Female INDICATIONS: . Right hand pain. CLINICAL DATA: This is the patient's initial encounter. Patient reports that signs and symptoms have been present for 1 day and indicates a pain score of 0/10. MEDICAL/SURGICAL HISTORY: Hypertension. Hysterectomy. COMPAR[place]: [facility] [place], 01/08/2018. . TECHNIQUE: Multiplanar, multisequence examination of the brain was performed without contrast. FINDINGS: Cerebrum: Ventricular size is appropriate. Minimal periventricular white matter changes are noted. T here are no extra-axial fluid collections appreciated. There is no restricted diffusion evident. There is no parenchymal hemorrhage. There are no extra-axial fluid collections appreciated. Posterior Fossa: The fourth ventricle is midline. Minimal periventricular white matter changes are se en at the level of brachium pontis. There is no restricted diffusion in the cerebellar hemispheres. Extracranial: The visualized portions of the orbits and paranasal sinuses are unremarkable. CONCLUSION: 1. Moderate periventricular white matter changes 2. There is no restricted diffusion suggest an acute ischemic event at this point. 3. There is no parenchymal hemorrhage. Electronically signed by: Perfecto Hairston MD 01/08/2018 3:14 PM EDT
[2018-01-08] MEDS: Aspirin 325 MG Tablet PO SCH (15:17)
[2018-01-08] MEDS: Sod Chloride 0.9% Inj 1,000 ML IV.CONT SCH ×2 (15:17→20:51)
[2018-01-08 16:59] LABS: Anion Gap 5 meq/L (5-15); Blood Urea Nitrogen 19 mg/dL (7-18); Calcium 9.2 mg/dL (8.5-10.1); Carbon Dioxide 30.3 meq/L (21.0-32.0); Chloride 106 meq/L (98-107); Glomerular Filtration Rate 47 mL/min (>89); Glucose,Random 97 mg/dL (74-106); Potassium 4.2 meq/L (3.5-5.1); Sodium 141 meq/L (136-145)
--- NOTE | 2018-01-08 17:01 | US ---
EXAM DATE: 01/08/2018 12:00 AM EDT AGE/SEX: 87 years / Female INDICATIONS: Transient ischemic attack. CLINICAL DATA: This is the patient's subsequent encounter. Patient reports that signs and symptoms h ave been present for 1 day and indicates a pain score of 0/10. MEDICAL/SURGICAL HISTORY: Hypertension. None. COMPARISON: No prior exams available for comparison. VELOCITY PARAMETERS: ICA/CCA Ratio: Right middle and distal ICA not visualized. , Left 0.9 ICA: Right 24 (prox) cm/sec, Left 73 cm/sec CCA: Right 49 cm/sec, Left 79 cm/sec ECA: Right 54 cm/sec, Left 62 cm/sec Vertebral: Right Not visualized. cm/sec absent, Left 39 cm/sec antegrade FINDINGS: Right Carotid: No significant plaque is visualized.The waveforms are within normal limits. Left Carotid: No significant plaque is visualized. The waveforms are within normal limits. Other: None. CONCLUSION: Negative for hemodynamically significant carotid stenosis Electronically signed by: Perfecto Hairston MD 01/08/2018 5:00 PM EDT
[2018-01-08 17:11] LABS: Creatine Kinase 79 U/L (26-192)
[2018-01-08] MEDS: Heparin - SQ 10,000 UNITS/ML Vial SQ SCH (20:49)
[2018-01-08] MEDS: Sodium Chloride 0.9% 2 ML Flush BID IV.FLUSH SCH (20:51)
[2018-01-09 06:19] LABS: Cholesterol 173 mg/dL (120-200); Triglycerides 100 mg/dL (42-150)
[2018-01-09 06:23] LABS: HDL Cholesterol 50.8 mg/dL (40.0-60.0); LDL Cholesterol,Calculated 102 mg/dL (0-99)
[2018-01-09] MEDS: Sod Chloride 0.9% Inj 1,000 ML IV.CONT SCH ×2 (08:27→17:50)
[2018-01-09] MEDS: Aspirin 325 MG Tablet PO SCH (08:29)
[2018-01-09] MEDS: Heparin - SQ 10,000 UNITS/ML Vial SQ SCH ×2 (08:30→20:37)
[2018-01-09] MEDS: Sodium Chloride 0.9% 2 ML Flush BID IV.FLUSH SCH ×2 (08:31→20:38)
[2018-01-09] MEDS: Acetaminophen 325 MG Tablet PO PRN ×2 (08:38→20:46)
--- NOTE | 2018-01-09 09:45 | P.PNIM ---
Subjective Interval history: The patient was resting comfortably in bed. She stated that she was unable to write with her right hand and she also had some trouble with her mouth. She is feeling much improved at this time. She does follow with a neurologist. Physical Exam Vital signs: Vital Signs 01/08/18 12:07 01/08/18 15:24 01/08/18 15:58 Temperature 98.1 F Pulse Rate 75 76 Respiratory Rate 16 Blood Pressure 188/97 H 182/76 H 170/74 H Pulse Oximetry 97 96 95 01/08/18 17:35 01/08/18 19:45 01/08/18 20:00 Temperature 97.4 F L 98.2 F Pulse Rate 83 73 Respiratory Rate 20 18 Blood Pressure 148/88 H 216/100 H Pulse Oximetry 97 99 99 01/08/18 21:30 01/09/18 00:00 01/09/18 01:30 Temperature 97.8 F 98.2 F Pulse Rate 85 70 85 Respiratory Rate 18 18 Blood Pressure 160/87 H 164/77 H Pulse Oximetry 95 99 01/09/18 03:50 01/09/18 04:00 01/09/18 05:50 Temperature 98.9 F 98.9 F Pulse Rate 74 66 76 Respiratory Rate 18 18 Blood Pressure 157/85 H 181/78 H Pulse Oximetry 96 97 01/09/18 08:00 Temperature 97.9 F Pulse Rate 80 Respiratory Rate 18 Blood Pressure 181/93 H Pulse Oximetry 96 Intake & Output 01/08/18 01/09/18 01/09/18 18:59 06:59 18:59 Intake Total 1999 1000 / 1000 Balance 1999 1000 / 1000 Weight 77.111 kg 90.7 kg Intake: IV 1999 1000 / 1000 NS Inj 1,000 ML @ 70 mls/hr IV. 1999 1000 / 1000 CONT .[id number] [facility] Rx#:[id number] Other: # Voids 3 Date of Last Bowel Movement 01/08/18 01/07/18 Narrative: GENERAL: NAD. SKIN: Warm and dry. HEENT: AT/NC. PERRLA. EOMI. Arcus senilis bilaterally. MMM. NECK: Supple no tender LAD or JVD. HEART: RRR no m/r/g. LUNGS: CTAB without wheezes or crackles. ABDOMEN: +BS, soft, NT, ND. EXTREMITIES: No LE edema. NEURO: Awake, alert, and oriented to person, time, place. CN II-XII intact. Biceps and trapezius strength 5/5 bilaterally. R carcass washer strength slightly decreased compared to left but otherwise 5/5. LE strength 5/5 on right, 4/5 on left. PSYCH: Appropriate mood and affect. Results - Labs CBC & Chem 7: 01/08/18 12:26 01/08/18 16:15 Laboratory Results - last 24 hr 01/08/18 01/08/18 01/08/18 12:26 12:26 12:33 WBC 7.3 RBC 4.20 Hgb 12.1 Hct 36.0 MCV 85.7 MCH 28.7 MCHC 33.5 RDW 17.0 Plt Count 187 MPV 8.5 Prelim Diff (Auto) Slide review pending Neut % (Auto) 67.0 Lymph % (Auto) 21.2 [place] % (Auto) 7.8 Eos % (Auto) 3.4 Baso % (Auto) 0.6 Neut # (Auto) 4.9 Lymph # (Auto) 1.5 [place] # (Auto) 0.6 Eos # (Auto) 0.2 Baso # (Auto) 0.0 WBC Differential . Diff Scan Auto diff confirmed Differential Comment . PT 10.3 INR 1.0 APTT 24.0 L Sodium Potassium Chloride Carbon Dioxide Anion Gap BUN Creatinine Estimated GFR POC Glucose 98 Random Glucose Calcium Total Creatine Kinase Troponin I Triglycerides Cholesterol LDL Cholesterol, Calc HDL Cholesterol Cholesterol/HDL Ratio 01/08/18 01/08/18 01/08/18 16:15 21:01 22:13 WBC RBC Hgb Hct MCV MCH MCHC RDW Plt Count MPV Prelim Diff (Auto) Neut % (Auto) Lymph % (Auto) [place] % (Auto) Eos % (Auto) Baso % (Auto) Neut # (Auto) Lymph # (Auto) [place] # (Auto) Eos # (Auto) Baso # (Auto) WBC Differential Diff Scan Differential Comment PT INR APTT Sodium 141 Potassium 4.2 Chloride 106 Carbon Dioxide 30.3 Anion Gap 5 BUN 19 H Creatinine 1.30 H Estimated GFR 47 L POC Glucose 166 H Random Glucose 97 Calcium 9.2 Total Creatine Kinase 79 Troponin I Less than 0.02 L Less than 0.02 L Triglycerides Cholesterol LDL Cholesterol, Calc HDL Cholesterol Cholesterol/HDL Ratio 01/09/18 01/09/18 05:31 08:46 WBC RBC Hgb Hct MCV MCH MCHC RDW Plt Count MPV Prelim Diff (Auto) Neut % (Auto) Lymph % (Auto) [place] % (Auto) Eos % (Auto) Baso % (Auto) Neut # (Auto) Lymph # (Auto) [place] # (Auto) Eos # (Auto) Baso # (Auto) WBC Differential Diff Scan Differential Comment PT INR APTT Sodium Potassium Chloride Carbon Dioxide Anion Gap BUN Creatinine Estimated GFR POC Glucose 109 Random Glucose Calcium Total Creatine Kinase Troponin I Less than 0.02 L Triglycerides 100 Cholesterol 173 LDL Cholesterol, Calc 102 H HDL Cholesterol 50.8 Cholesterol/HDL Ratio 3.40 - Imaging Impressions Carotid Doppler Study 01/08/18 00:00 CONCLUSION: Negative for hemodynamically significant carotid stenosis Head MRI 01/08/18 00:00 CONCLUSION: 1. Moderate periventricular white matter changes 2. There is no restricted diffusion suggest an acute ischemic event at this point. 3. There is no parenchymal hemorrhage. Head MRA 01/08/18 00:00 CONCLUSION: 1. Negative for major branch vessel occlusion 2. Suboptimal visualization of the M2 vessels on the right that may well be artifactual. Head CT 01/08/18 12:16 CONCLUSION: 1. Lenticular-shaped hypointense area involving the left caudate head with mild mass effect upon the left frontal horn of the lateral ventricle. This may represent a subacute infarct. Consider further evaluation with MRI. . Assessment and Plan - Assessment (1) Ischemic stroke Code(s): I63.9 - Cerebral infarction, unspecified Status: Acute - Plan 87 year old female with HTN and prior TIA presenting with transient right hand weakness and numbness. CT showing possible subacute infarct around the left caudate. She will be admitted for ischemic stroke. Ischemic stroke Though patient presenting with transient right-hand weakness/numbness she does have some dysarthric speech and somewhat altered mental status per family for the past couple weeks. CT head showing lenticular shaped hypointense area involving the left caudate head with mild mass-effect upon the left frontal horn of the lateral ventricle possibly representing a subacute infarct. MRI/MRA brain negative for CVA. Carotids without significant disease. -2D echo. -Monitor on telemetry. -Aspirin 325 mg daily. -Neuro consulted for further eval. -PT/OT/ST. -NS at 70 ml/hr. HTN BP elevated on arrival at 188/97 -Allow for permissive HTN at this time. -resume Lopressor this evening. Renal insufficiency Seems chronic. -IVFs and monitor. -avoid nephrotoxins. DVT prophylaxis: Heparin Q12 Discharge Planning: Await neuro eval
--- NOTE | 2018-01-09 12:31 | MB ---
cc: Rosana Ahumada MD DATE: 01/09/2018 REASON FOR CONSULTATION: TIA, right hand, discoordination. HISTORY OF PRESENT ILLNESS: This is a pleasant 87-year-old woman, right-handed, with a history of hypertension, prior TIA in 2014. Follows with my associate, Dr. Bauer. Comes in with some right-handed weakness. She was actually at [employer] trying to write a check and was not able to do so. Became very clumsy. Seems like may have been weak. There is some question of tingling and numbness, but she was back to baseline by the time she came here. Apparently, she had also a TIA back in 2014 where she was having trouble getting words out. Per chart notes, it seems she has been a little off states by a family member for the last couple of weeks. I am not sure if this is what this means whether it was comprehension, speech, etc. The patient states that she is worried about getting memory problems. She at times gets word finding difficulties. She does take a 325 mg aspirin every day since she had her last TIA and I believe she saw my associate in the office, Dr. Bauer, couple of weeks ago she states. Currently she has a mild headache, but no visual loss. No nausea, vomiting, diarrhea. No chest pain. No weakness, numbness or tingling. FAMILY HISTORY: Stroke in the mother. SOCIAL HISTORY: She lives with her sister. Quit smoking 5 years ago. No alcohol. No drugs. MEDICATIONS: She does take a full dose aspirin. Other medications. REVIEW OF SYSTEMS: Please refer to her MAR. PHYSICAL EXAMINATION: VITAL SIGNS: Temperature is 97.9, pulse 80, respiratory rate 18, blood pressure 181/93, saturating 96% on room air. NECK: Supple. No appreciable bruits. HEART: Regular. NEUROLOGIC: She is awake and alert. It is difficult to say if she is dysarthric or she just does not enunciate words well, but she does not have a facial droop. Pupils reactive. Tongue is midline. Motor: There is no drift or leg lag. Her veneer lathe operator are symmetrical. Random alternating movements, she is not clumsy. [id number], she does not pass point. She has chronic low back pain, but she can lift both legs up together minimally. DTRs are 1+. Toes she is very sensitive, so she withdraws bilaterally. Gait is withheld; I am going to defer to PT. LABORATORY DATA: CBC is intact. Coag panel: PTT was 24. Chemistries: BUN 19, creatinine 1.3, GFR 47, glucose 166, currently 109. Cardiac enzymes are negative. Cholesterol 173, LDL 102, HDL 50.8, triglycerides 100. IMAGING STUDIES: Carotid ultrasound did not yield any significant stenosis. MRA [place] negative, but suboptimal visualization of M2 on the right may be artifactual. MRI brain, moderate white matter changes. No hemorrhage. IMPRESSION: Probable transient ischemic attack. PLAN: Would recommend at this point taking her off of the aspirin and changing her over to clopidogrel 75 mg twice a day. Also, I would add in a hemoglobin A1c, a thyroid panel, B12, RPR, as well as with her hypertension, start controlling her blood pressure. Get her out of bed. Have PT and OT assess her and if stable, discharge planning with a home Holter monitor. Have her followup with Dr. Bauer in the office. Her LDL is 102. She is not on a statin. Lets put her on a statin. SCDs and Lovenox for deep venous thrombosis prevention. MD EMORY Sloan/moy , 11:19 AM , 11:29 AM
--- NOTE | 2018-01-09 13:39 | ECG ---
Date Performed: 01/08/2018 Time Performed: 12:22:18 PTAGE: 87 years EKG: Sinus rhythm NONSPECIFIC ST ELEVATION BORDERLINE ECG PREVIOUS TRACING 06/24/2014 12.16 Since the previous tracing, no significant change noted DOCTOR: Curt Galvan Interpretating Date/Time 01/09/2018 13:38:49
[2018-01-09 14:42] LABS: Free T4 (Free Thyroxine) 1.06 ng/dL (0.76-1.46); Thyroid Stimulating Hormone 0.709 uIU/mL (0.358-3.740)
--- NOTE | 2018-01-09 15:25 | ECHRPT ---
Indication: CVA / TIA CONCLUSIONS Normal left ventricular size. Wall thickness is measured at the upper limits of normal. The left ventricular systolic function is normal with an estimated ejection fraction in the range of 55-60%. There is trace tricuspid valve regurgitation. The estimated pulmonary arterial pressure is 30 mmHg. BP: / HR: Rhythm: MEASUREMENTS (Male / Female) Normal Values Technical Quality:Fair 2D ECHO LV Diastolic Diameter PLAX 3.5 cm 4.2 - 5.9 / 3.9 - 5.3 cm LV Systolic Diameter PLAX 2.5 cm IVS Diastolic Thickness 1.1 cm 0.6 - 1.0 / 0.6 - 0.9 cm LVPW Diastolic Thickness 1.1 cm 0.6 - 1.0 / 0.6 - 0.9 cm LV Relative Wall Thickness 0.6 RV Internal Dim ED PLAX 3.1 cm LVOT Diameter 2.0 cm Aortic Root Diameter 2.4 cm LA Systolic Diameter LX 2.8 cm 3.0 - 4.0 / 2.7 - 3.8 cm DOPPLER AV Peak Velocity 185.0 cm/s AV Peak Gradient 13.7 mmHg LVOT Peak Velocity 142.0 cm/s LVOT Peak Gradient 8.1 mmHg AV Area Cont Eq pk 2.4 cm Mitral E Point Velocity 77.0 cm/s Mitral A Point Velocity 81.9 cm/s Mitral E to A Ratio 0.9 LV E' Lateral Velocity 6.9 cm/s Mitral E to LV E' Lateral Ratio 11.1 LV E' Septal Velocity 5.1 cm/s Mitral E to LV E' Septal Ratio 15.2 TR Peak Velocity 223.0 cm/s TR Peak Gradient 19.9 mmHg Right Atrial Pressure 10.0 mmHg Pulmonary Artery Systolic Pressu 29.9 mmHg Right Ventricular Systolic Press 29.9 mmHg PV Peak Velocity 126.0 cm/s PV Peak Gradient 6.4 mmHg FINDINGS LEFT VENTRICLE Normal left ventricular size. Wall thickness is measured at the upper limits of normal. The left ventricular systolic function is normal with an estimated ejection fraction in the range of 55-60%. RIGHT VENTRICLE Normal right ventricular size and systolic function. LEFT ATRIUM The left atrial size is normal. RIGHT ATRIUM The right atrial size is normal. ATRIAL SEPTUM Normal atrial septal thickness without atrial level shunting by limited color doppler interrogation. AORTA The aortic root and proximal ascending aorta are normal in size on limited imaging. MITRAL VALVE Structurally normal mitral valve. No mitral valve stenosis or regurgitation. AORTIC VALVE The aortic valve is not well visualized. No aortic valve stenosis or regurgitation. TRICUSPID VALVE There is trace tricuspid valve regurgitation. The estimated pulmonary arterial pressure is 30 mmHg. PULMONARY VALVE No pulmonary valve regurgitation or stenosis. VESSELS The inferior vena cava is normal in size. PERICARDIUM No pericardial effusion. Austin Mcghee (Electronically Signed) Final Date:09 January 2018 15:24
[2018-01-09 17:06] LABS: Hemoglobin A1c 5.4 % (4.3-6.0)
[2018-01-09] MEDS: Allopurinol 100 MG Tablet PO SCH (20:37)
[2018-01-09] MEDS: Metoprolol Tartrate 50 MG Tablet PO SCH (20:37)
[2018-01-10 09:09] LABS: Hematocrit 36.2 % (35.0-46.0); Hemoglobin 11.9 gm/dL (11.6-15.3); Mean Corpuscular HGB Conc 32.8 % (32.0-36.0); Mean Corpuscular Volume 85.3 fL (80.0-100.0); Mean Platelet Volume 8.6 fL (7.0-11.0); Platelet Count 203 th/mm3 (150-450); Red Blood Count 4.24 mil/mm3 (4.00-5.30); White Blood Count 3.7 th/mm3 (4.0-11.0)
[2018-01-10 09:28] LABS: Calcium 9.4 mg/dL (8.5-10.1); Carbon Dioxide 25.9 meq/L (21.0-32.0); Potassium 3.9 meq/L (3.5-5.1)
[2018-01-10] MEDS ORDERED: amLODIPine 5 MG Tablet PO SCH (09:30)
--- NOTE | 2018-01-10 09:46 | P.PNIM ---
Subjective Interval history: The patient was resting comfortably in bed. She complained of a minor right- sided headache. She requested a Lortab. She says her blood pressure is not usually so high. No other acute complaints. Physical Exam Vital signs: Vital Signs 01/09/18 12:00 01/09/18 16:00 01/09/18 20:00 Temperature 97.6 F 97.3 F L 98.9 F Pulse Rate 92 H 87 111 H Respiratory Rate 18 18 18 Blood Pressure 153/73 H 145/80 H 163/79 H Pulse Oximetry 96 99 97 01/09/18 20:15 01/09/18 21:13 01/09/18 23:50 Temperature Pulse Rate 102 H 72 Respiratory Rate Blood Pressure Pulse Oximetry 96 01/10/18 00:00 01/10/18 04:00 01/10/18 04:10 Temperature 97.6 F 97.9 F Pulse Rate 73 69 61 Respiratory Rate 18 18 Blood Pressure 164/91 H 176/83 H Pulse Oximetry 95 94 L Intake & Output 01/09/18 01/10/18 01/10/18 18:59 06:59 18:59 Intake Total 2960 / 2960 Balance 2960 / 2960 Weight 90.7 kg Intake: IV 1999 NS Inj 1,000 ML @ 70 mls/hr IV. 1999 CONT .[id number] [facility] Rx#:[id number] Oral 960 / 960 Other: # Voids 3 1 Date of Last Bowel Movement 01/07/18 01/09/18 Narrative: GENERAL: NAD. SKIN: Warm and dry. HEENT: AT/NC. PERRLA. EOMI. Arcus senilis bilaterally. MMM. NECK: Supple no tender LAD or JVD. HEART: RRR no m/r/g. LUNGS: CTAB without wheezes or crackles. ABDOMEN: +BS, soft, NT, ND. EXTREMITIES: No LE edema. NEURO: Awake, alert, and oriented to person, time, place. CN II-XII intact. Biceps and trapezius strength 5/5 bilaterally. R aircraft mechanic armament strength slightly decreased compared to left but otherwise 5/5. LE strength 5/5 on right, 4/5 on left. PSYCH: Appropriate mood and affect. Results - Labs CBC & Chem 7: 01/10/18 08:25 01/10/18 08:25 Laboratory Results - last 24 hr 01/09/18 01/09/18 01/09/18 05:31 13:15 17:49 WBC RBC Hgb Hct MCV MCH MCHC RDW Plt Count MPV Sodium Potassium Chloride Carbon Dioxide Anion Gap BUN Creatinine Estimated GFR POC Glucose 104 Random Glucose Hemoglobin A1c 5.4 Calcium Magnesium Vitamin B12 348 TSH 0.709 Free T4 1.06 01/09/18 01/10/18 01/10/18 20:50 07:47 08:25 WBC 3.7 L RBC 4.24 Hgb 11.9 Hct 36.2 MCV 85.3 MCH 28.0 MCHC 32.8 RDW 17.0 Plt Count 203 MPV 8.6 Sodium Potassium Chloride Carbon Dioxide Anion Gap BUN Creatinine Estimated GFR POC Glucose 127 H 90 Random Glucose Hemoglobin A1c Calcium Magnesium Vitamin B12 TSH Free T4 01/10/18 08:25 WBC RBC Hgb Hct MCV MCH MCHC RDW Plt Count MPV Sodium 141 Potassium 3.9 Chloride 107 Carbon Dioxide 25.9 Anion Gap 8 BUN 20 H Creatinine 1.28 H Estimated GFR 48 L POC Glucose Random Glucose 90 Hemoglobin A1c Calcium 9.4 Magnesium 2.0 Vitamin B12 TSH Free T4 Assessment and Plan - Assessment (1) Ischemic stroke Code(s): I63.9 - Cerebral infarction, unspecified Status: Acute - Plan 87 year old female with HTN and prior TIA presenting with transient right hand weakness and numbness. CT showing possible subacute infarct around the left caudate. She will be admitted for ischemic stroke. Ischemic stroke Though patient presenting with transient right-hand weakness/numbness she does have some dysarthric speech and somewhat altered mental status per family for the past couple weeks. CT head showing lenticular shaped hypointense area involving the left caudate head with mild mass-effect upon the left frontal horn of the lateral ventricle possibly representing a subacute infarct. MRI/MRA brain negative for CVA. Carotids without significant disease. Echocardiogram with normal ejection fraction. Neurology consult appreciated. -Monitor on telemetry. Holter monitor upon discharge. -Plavix and statin per neurology. -PT/OT. Add speech therapy for dysarthria and cognition. -DC IV fluids and start blood pressure control. HTN BP quite elevated. S/p permissive HTN. -resume Lopressor. -Add amlodipine 5 mg daily. Adjust as needed. -Clonidine as needed. Renal insufficiency Seems chronic. S/p IVFs. -Follow BMP and avoid nephrotoxins. DVT prophylaxis: Heparin Q12 Discharge Planning: Needs improvement in blood pressure and speech therapy eval. Anticipate d/c home in 1-2 days with outpt PT/OT/ST.
[2018-01-10 09:54] VITALS: RESP 20
[2018-01-10] MEDS ORDERED: Baclofen 10 MG Tablet PO PRN (10:00)
[2018-01-10] MEDS: Metoprolol Tartrate 50 MG Tablet PO SCH (10:35)
[2018-01-10] MEDS: Allopurinol 100 MG Tablet PO SCH (10:35)
[2018-01-10] MEDS: Sodium Chloride 0.9% 2 ML Flush BID IV.FLUSH SCH (10:35)
[2018-01-10] MEDS: Heparin - SQ 10,000 UNITS/ML Vial SQ SCH (10:35)
[2018-01-10] MEDS: Sod Chloride 0.9% Inj 1,000 ML IV.CONT SCH (10:48)
[2018-01-10 16:22] VITALS: BP 134/69; PULSE 66; TEMP 97.3; O2SAT 97
--- NOTE | 2018-01-10 16:25 | P.DS ---
Date of admission: 01/08/18 14:30 Primary care physician: UNKNOWN Anticipated date of discharge: 01/10/18 Brief History from admission: 87 year old right-handed female with history of HTN and prior TIA in 2015 presenting with right-hand weakness. The patient is a poor historian and seems to have some dysarthric and slurred speech. She is oriented x 3 but is unable to tell me exactly what happened today. Her daugther and sister are present at the bedside. The sister reports they were at [employer] today and when the patient was writing something down she states she was very clumsy and unable to write. She stated her hand was very tingly and felt numb. Presently she states her hand is feeling back to normal. Her sister, in private , informs me that for the past couple weeks the patient has seemed "off." She states she doesn't seem to be comprehending what is being told to her a lot and her speech seems different. The patient's sister also confirms this and states the patient has been repeating herself a lot. She denies any gait abnormalities , blurry or double vision, dizziness, or confusion. She denies chest pain, palpitations, lightheadedness, or dizziness. She states she takes medicine for HTN but cannot tell me what and cannot recall other medications she takes or medical problems she has. She reports she takes the "full strength" aspirin but did not take it today. She denies taking blood thinners. Her daughter states she is going to go to the patient's house and bring her medications in because no one can tell me what she is on and the last time we have a med rec was from 2015. PMH: HTN, prior TIA Surgical hx: hysterectomy Family hx: mother from a stroke, does not know father's history Social hx: lives with sister, quit smoking 5 years ago (started smoking "later in life" but is very vague on how much and for how long), denies EtOH or drug use Inpatient Certification I certify that the inpatient services were ordered in accordance with Medicare regulations governing the order. This includes certification that hospital inpatient services are reasonable and necessary and in the case of services not specified as inpatient-only under 42 CFR 419.22(n), that they are appropriately provided as inpatient services in accordance to with the 2-midnight benchmark under 43 CFR 412.3(e). Estimated length of stay: 2 dayd Plan after D/C: to be determined based on PT/OT assessment DS: Diagnosis - Discharge Diagnosis (1) TIA (transient ischemic attack) Status: Acute DS: Medications - Discharge Medications Prescriptions: amlodipine [Norvasc] 5 mg PO DAILY #30 tab atorvastatin [Lipitor] 10 mg PO HS #30 tab clopidogrel [Plavix] 75 mg PO DAILY #30 tab hydrocodone-acetaminophen 1 tab PO Q4H PRN #10 tab PRN Reason: pain 3-10 DS: Summary Hospital Course: TIA The patient presented with transient right-hand weakness/numbness, dysarthric speech and somewhat altered mental status per family. CT head showing lenticular shaped hypointense involving the left caudate head with mild mass- effect upon the left frontal horn of the lateral ventricle, possibly representing a subacute infarct. MRI/MRA brain was negative for CVA. Carotids without significant disease. Echocardiogram with normal ejection fraction. Neurology was consulted. We monitored her on telemetry. She will have a Holter monitor placed as an outpt. Plavix and statin were added, aspirin was discontinued. She worked with PT/OT and will resume outpt services. Speech therapy also worked with the patient. She received Coward for headache as needed , E-Forcse was checked. HTN S/p permissive HTN. We resumed Lopressor and added amlodipine 5 mg daily. She will follow up with her PCP. Renal insufficiency Chronic. Improved with IVFs. - Time Spent with Patient Total time spent providing and/or coordinating discharge services: Greater than 30 minutes Exam Vital signs: Vital Signs 01/09/18 20:00 01/09/18 20:15 01/09/18 21:13 Temperature 98.9 F Pulse Rate 111 H 102 H Respiratory Rate 18 Blood Pressure 163/79 H Pulse Oximetry 97 96 01/09/18 23:50 01/10/18 00:00 01/10/18 04:00 Temperature 97.6 F 97.9 F Pulse Rate 72 73 69 Respiratory Rate 18 18 Blood Pressure 164/91 H 176/83 H Pulse Oximetry 95 94 L 01/10/18 04:10 01/10/18 08:00 01/10/18 09:47 Temperature 97.3 F L Pulse Rate 61 80 Respiratory Rate 20 Blood Pressure 182/89 H Pulse Oximetry 96 96 01/10/18 12:00 Temperature 98.1 F Pulse Rate 72 Respiratory Rate 20 Blood Pressure 145/71 H Pulse Oximetry 95 Intake & Output 01/09/18 01/10/18 01/10/18 18:59 06:59 18:59 Intake Total 2960 / 2960 1000 / 1000 Balance 2960 / 2960 1000 / 1000 Weight 90.7 kg Intake: IV 1999 1000 / 1000 NS Inj 1,000 ML @ 70 mls/hr IV. 1999 1000 / 1000 CONT .[id number] [facility] Rx#:[id number] Oral 960 / 960 Other: # Voids 3 1 Date of Last Bowel Movement 01/07/18 01/09/18 01/09/18 Narrative: GENERAL: NAD. SKIN: Warm and dry. HEENT: AT/NC. PERRLA. EOMI. Arcus senilis bilaterally. MMM. NECK: Supple no tender LAD or JVD. HEART: RRR no m/r/g. LUNGS: CTAB without wheezes or crackles. ABDOMEN: +BS, soft, NT, ND. EXTREMITIES: No LE edema. NEURO: Awake, alert, and oriented to person, time, place. CN II-XII intact. Biceps and trapezius strength 5/5 bilaterally. R forensic chemist strength slightly decreased compared to left but otherwise 5/5. LE strength 5/5 on right, 4/5 on left. PSYCH: Appropriate mood and affect. Results Procedures completed during hospitalization: None Labs on day of discharge: Labs from last 24 hours 01/10/18 01/10/18 01/10/18 11:17 08:25 08:25 WBC 3.7 L RBC 4.24 Hgb 11.9 Hct 36.2 MCV 85.3 MCH 28.0 MCHC 32.8 RDW 17.0 Plt Count 203 MPV 8.6 Sodium 141 Potassium 3.9 Chloride 107 Carbon Dioxide 25.9 Anion Gap 8 BUN 20 H Creatinine 1.28 H Estimated GFR 48 L POC Glucose 156 H Random Glucose 90 Hemoglobin A1c Calcium 9.4 Magnesium 2.0 RPR 01/10/18 01/09/18 01/09/18 07:47 20:50 17:49 WBC RBC Hgb Hct MCV MCH MCHC RDW Plt Count MPV Sodium Potassium Chloride Carbon Dioxide Anion Gap BUN Creatinine Estimated GFR POC Glucose 90 127 H 104 Random Glucose Hemoglobin A1c Calcium Magnesium RPR 01/09/18 01/09/18 13:15 05:31 WBC RBC Hgb Hct MCV MCH MCHC RDW Plt Count MPV Sodium Potassium Chloride Carbon Dioxide Anion Gap BUN Creatinine Estimated GFR POC Glucose Random Glucose Hemoglobin A1c 5.4 Calcium Magnesium RPR Nonreactive - Impressions ITS Impressions Carotid Doppler Study 01/08/18 00:00 CONCLUSION: Negative for hemodynamically significant carotid stenosis Head MRI 01/08/18 00:00 CONCLUSION: 1. Moderate periventricular white matter changes 2. There is no restricted diffusion suggest an acute ischemic event at this point. 3. There is no parenchymal hemorrhage. Head MRA 01/08/18 00:00 CONCLUSION: 1. Negative for major branch vessel occlusion 2. Suboptimal visualization of the M2 vessels on the right that may well be artifactual. Head CT 01/08/18 12:16 CONCLUSION: 1. Lenticular-shaped hypointense area involving the left caudate head with mild mass effect upon the left frontal horn of the lateral ventricle. This may represent a subacute infarct. Consider further evaluation with MRI. . Discharge Plan - Discharge Disposition Patient Disposition: 01 Discharge Home - Discharge Condition Condition: Stable - Discharge Order Discharge Orders: Discharge Order (Routine); Ordered 01/10/18 Ordered By: Hayder Blanco - Discharge Details Anticipated Discharge Date: 01/10/18 Discharge Comment: The patient will call the outpatient shotgun shell loading machine operator to set up 24 hour Holter monitor - Physicians Team Primary Care Provider: UNKNOWN, Attending Provider: Hayder Blanco Other Providers: Rosana Ahumada MD ; Diana Ortiz
== END 2018-01-10 19:52 | disposition home or self-care (01) ==
LOC: NEPE 11:57 → OBSVTOIN 14:30 → NEDA 15:29 → INTOOBSV 15:29 → N05 16:57
PROVIDERS: ADMIT Hospitalist; ATTEND Hospitalist